=== PATIENT | male | born 1965 | race Caucasian/White ===

== ENCOUNTER 2021-08-02 02:52 | Emergency (ER) | payer MEDICARE ==
[2021-08-02] MEDS ORDERED: Ketorolac Tromethamine 30 MG/ML VIAL ONE (03:15)
[2021-08-02 03:41] LABS: #Basophils 0.1 thou/uL (0.0-0.2); #Eosinphils 0.2 thou/uL (0.0-0.7); #Lymphocytes 2.1 thou/uL (1.20-3.40); #Neutrophils 5.8 thou/uL (1.40-6.50); %Basophils 1.1 % (0.0-1.0); %Eosinophils 1.7 % (0.0-10.0); %Lymphocytes 23.4 % (21.0-51.0); %Monocytes 10.4 % (0.0-10.0); %Neutrophils 63.5 % (42.0-75.0); Hemoglobin 13.3 g/dL (14.0-18.0); Mean Corpuscular HGB CONC 32.1 g/dL (32.0-36.0); Mean Corpuscular Volume 90.3 fL (78.0-98.0); Mean Platelet Volume 7.9 fL (7.4-10.4); Platelet Count 191 thou/uL (130-400); RBC Distribution Width 13.3 % (11.5-14.5); Red Blood Cell (RBC) Count 4.58 mill/uL (4.70-6.10); White Blood Cell (WBC) Count 9.2 thou/uL (4.8-10.8)
[2021-08-02 03:57] LABS: Anion Gap 17 mmol/L (10-20); BUN (Urea Nitrogen) 29 mg/dL (8.4-25.7); Calc. Creatinine Clearance 0 mL/min (70-130); Calcium 9.7 mg/dL (7.8-10.44); Carbon Dioxide 24 mmol/L (22-29); Chloride 104 mmol/L (98-107); Glucose 246 mg/dL (70-105); Potassium 4.4 mmol/L (3.5-5.1); Sodium 141 mmol/L (136-145)
[2021-08-02 04:06] LABS: Base Excess-Venous 1.1 mmol/L (-2.0 to 3.0); Bicarbonate (HCO3v) 25.6 mmol/L (22.0-28.0); CO2 Tension (PvCO2) 39.1 mmHg (42.0-51.0); Calcium, Ionized 1.17 mmol/L (1.15-1.33); Chloride 103 mmol/L (98-107); Hemoglobin - Calc 13.9 g/dL (14.0-18.0); Potassium 4.4 mmol/L (3.5-5.1); Sodium 140 mmol/L (138-145); T. Carbon Dioxide 26.8 mmol/L (22.0-28.0); vO2 Saturation-calc 98.6 % (60.0-85.0)
== END 2021-08-02 05:04 | disposition home or self-care (01) ==
LOC: MADERS 02:52
DX: E11.40 Type 2 diabetes mellitus with diabetic neuropathy, unspecified (principal); E11.65 Type 2 diabetes mellitus with hyperglycemia; F17.210 Nicotine dependence, cigarettes, uncomplicated; Z79.84 Long term (current) use of oral hypoglycemic drugs; Z79.4 Long term (current) use of insulin; Z79.899 Other long term (current) drug therapy
CPT/HCPCS: 36415; 36416; 80048; 82330; 82803; 85025; 96372; 99284; J1885

== ENCOUNTER 2021-08-09 16:06 | Emergency (ER) | payer MEDICARE ==
[2021-08-09] MEDS ORDERED: Ketorolac Tromethamine 30 MG/ML VIAL ONE (16:40)
== END 2021-08-09 17:12 | disposition home or self-care (01) ==
LOC: MADERS 16:06
DX: S33.5XXA Sprain of ligaments of lumbar spine, initial encounter (principal); X50.0XXA Overexertion from strenuous movement or load, initial encounter; Y99.0 Civilian activity done for income or pay; E11.40 Type 2 diabetes mellitus with diabetic neuropathy, unspecified; F17.210 Nicotine dependence, cigarettes, uncomplicated
CPT/HCPCS: 96372; 99283; J1885

== ENCOUNTER 2021-08-09 20:21 | Emergency (ER) | payer MEDICARE | END 2021-08-09 20:55 | disposition left against medical advice (07) | LOC: MADERS 20:21 | DX: Z53.21 Procedure and treatment not carried out due to patient leaving prior to being seen by health care provider (principal) ==